=== PATIENT | female | born 1990 | race Caucasian/White ===

== ENCOUNTER 2019-07-17 09:21 | Inpatient (IN) | payer MEDICAID, OTHER ==
--- NOTE | 2019-07-17 11:18 | Ultrasound Report ---
ULTRASOUND BIOPHYSICAL PROFILE INDICATION / CLINICAL INFORMATION: DARREN. COMPARISON: None available. FINDINGS: BREATHING MOVEMENT = 2 GROSS BODY MOVEMENT = 2 TONE = 2 QUALITATIVE AMNIOTIC FLUID VOLUME = 0 TOTAL BIOPHYSICAL SCORE = 6/8 AMNIOTIC FLUID INDEX (cm) = 1.1 PRESENTATION: Cephalic. HEART RATE (beats per minute): 148 IMPRESSION: 1. biophysical profile = 6/8 2. Significantly reduced amniotic fluid volume with amniotic fluid index measuring 1.1 cm. Signer Name: Abelardo Carney MD Signed: 07/17/2019 11:13 AM Workstation Name: [id number]
[2019-07-17] MEDS ORDERED: ePHEDrine SULFATE 50 MG/1 ML INJ IV PRN (11:34)
[2019-07-17] MEDS ORDERED: fentaNYL 100 MCG/2 ML INJ IV PRN (11:34)
[2019-07-17] MEDS ORDERED: TERBUTALINE 1 MG/1 ML INJ SUB-Q PRN (11:34)
[2019-07-17] MEDS ORDERED: LIDOCAINE (2%) 20 MG/1 ML VIAL 20 ML MDV INFILTRATI ONE (12:00)
[2019-07-17] MEDS ORDERED: OXYTOCIN 20 UNIT/1000ML DRIP 20 UNITS/1,000 ML BAG IV SCH (12:00)
[2019-07-17] MEDS ORDERED: AMPICILLIN/NS 2 GM/100 ML 2 GM/100 ML BAG IV ONE (12:45)
--- NOTE | 2019-07-17 12:50 | History and Physical Report ---
History of Present Illness Date of examination: 07/17/19 Date of admission: 07/17/19 11:46 Chief complaint: Oligohydramnios History of present illness: 29 year old female presents to rule out labor. Patient was found not to be in active labor but US obtained today showed DARREN of 1.1 cm and BPP of 6/8. Patient states she does not think her water has been leaking. When questioned again, she states for the past few days she has felt something intermittently coming from vagina but does not think it was fluid leaking. Denies vaginal bleeding. Reports intermittent contractions starting this morning. Denies recent intercourse. Denies fever, chills, or foul smelling discharge. Patient reports active movement. Patient states she received care at [facility]. No records are available; will request records. US was ordered for EGA, EDC, location of placenta, EFW, and presentation. labs were drawn upon admission. Patient states her EDC is 07/25/19. Patient states this is her first , and she states she has had a normal with no complications. Only takes vitamins, no other meds per pt. report. NKDA. NKLA. Denies substance use or abuse. Denies DV. Past History Past Medical History: other (obesity) Past Surgical History: no surgical history TRANSPORTATION SERVICES REPRESENTATIVE History: denies: chlamydia, gonorrhea, hepatitis B, hepatitis C, herpes, HIV, syphilis, trichomonas Family/Genetic History: diabetes Social history: full code, other (denies abuse). denies: smoking, alcohol abuse, prescription drug abuse, IV drug use - Obstetrical History Expected Date of Delivery: 07/25/19 (Per patient report; no records are available.) Actual Gestation: 38 Week(s) 6 Day(s) : 1 Para: 0 Hx # Term Pregnancies: 0 Number of Pregnancies: 0 Spontaneous Abortions: 0 Induced : 0 Number of Living Children: 0 Medications and Allergies Allergies Allergy/AdvReac Type Severity Reaction Status Date / Time No Known Allergies Allergy Unverified 07/17/19 11:45 Active Meds: Active Medications Ephedrine Sulfate (Ephedrine Sulfate) 10 mg IV Q2M PRN PRN Reason: Hypotension Fentanyl (Sublimaze) 100 mcg IV Q2H PRN PRN Reason: Labor Pain Oxytocin/Sodium Chloride (Pitocin/Ns 20 Unit/1000ml Drip) 20 units in 1,000 mls @ 125 mls/hr IV DIRECT STACIE Lactated Ringer's (Lactated Ringers) 1,000 mls @ 125 mls/hr IV DIRECT STACIE Ampicillin Sodium (Ampicillin/Ns 2 Gm/100 Ml) 2 gm in 100 mls @ 100 mls/hr IV ONCE ONE; Protocol Stop: 07/17/19 13:44 Ampicillin Sodium (Ampicillin/Ns 1 Gm/50 Ml) 1 gm in 50 mls @ 100 mls/hr IV Q4HR STACIE; Protocol Terbutaline Sulfate (Brethine) 0.25 mg SUB-Q ONCE PRN PRN Reason: Hyperstimulation/Hypertonicity Review of Systems All systems: negative (contractions) - Vital Signs Vital signs: Vital Signs Pulse BP 78 123/74 07/17/19 09:36 07/17/19 09:36 Temp Pulse Resp BP Pulse Ox 98 F 78 16 123/74 07/17/19 09:46 07/17/19 09:46 07/17/19 09:46 07/17/19 09:46 Speculum exam performed: no pooling noted. No ferning seen on slide. - Physical Exam Cardiovascular: Regular rate, Normal S1, Normal S2 Lungs: Positive: Clear to auscultation Abdomen: Positive: normal appearance, soft. Negative: distention, tenderness, guarding, rigidity Genitourinary (Female): Positive: normal external genitalia, normal perenium. Negative: perineal/vulvar lesions (no lesions noted on careful exam with bright light upon admission) Vagina: Positive: normal moisture Cervix: Positive: other (SVE 1.5/80/-2/cephalic/posterior) Uterus: Positive: enlarged Anus/Rectum: Positive: normal perianal skin Extremities: Positive: normal. Negative: tenderness, edema - Obstetrical FHR comments: FHR baseline 140 with minimal variability and accelerations. No decelerations noted. O2 applied per face mask, lateral positioning, and IV fluid bolus initiated. Uterine Contraction Monitor Mode: External Cervical Dilatation: 1.5 Cervical Effacement Percentage: 80 station: -2 Uterine Contraction Pattern: Irregular Uterine Contraction Intensity: Mild Results Result Diagrams: 07/17/19 13:23 07/17/19 13:23 All other labs normal. Assessment and Plan A: at 38 weeks, 6 days gestation (EDC of 07/25/19 per patient report, no records are available). Oligohydramnios. GBS unknown. No records available. P: US, lab panel ordered upon admission. Continuous EFM. IV fluid bolus, oxygen per face mask, lateral positioning. GBS prophylaxis. Vital sign monitoring and labs. Consulted with Dr. Haley re: this patient and informed her of all of the above, including no records, DARREN of 1.1 and BPP 6/8 (2 off for amniotic fluid), and heart rate tracing with minimal variability and accels. Dr. Haley states to keep patient on EFM and wait to start induction of labor until we receive patient's records tomorrow morning.
[2019-07-17] MEDS: LACTATED RINGERS 1,000 ML IV SCH ×2 (13:47→18:17)
[2019-07-17 14:07] LABS: Hematocrit 38.8 % (30.3-42.9); Hemoglobin 12.7 gm/dl (10.1-14.3); Mean Corpuscular HGB Conc 33 % (30-34); Mean Corpuscular Volume 79 fl (79-97); Platelet Count 217 K/mm3 (140-440); Red Blood Count 4.89 M/mm3 (3.65-5.03); Red Cell Distribution Width 15.4 % (13.2-15.2)
[2019-07-17 14:50] LABS: Albumin 3.7 g/dL (3.9-5); BUN/Creatinine Ratio 10; Blood Urea Nitrogen 5 mg/dL (7-17); Calcium 9.1 mg/dL (8.4-10.2); Hemolysis Index 36
[2019-07-17 14:53] LABS: Alanine Aminotransferase < 5 units/L (7-56)
[2019-07-17] MEDS ORDERED: D5W/LACTATED RINGERS 1,000 ML IV SCH (15:35)
--- NOTE | 2019-07-17 15:35 | Event Note ---
Date: 07/17/19 FHR tracing improved with oxygen, IV fluid bolus and positon change. Period of moderate variability and accelerations noted. Now minimal variability noted with normal FHR baseline rate. Called Dr. Haley at 15:25 and informed her of heart rate tracing and patient's BPs. Informed MD of CBC and CMP results. UA and UDS still pending. Dr. Haley orders to give patient IV fluid bolus of D5 LR for 1 liter, followed by 1 liter of Lactated Ringers solution at bolus rate. Continue oxygen per face mask and postition change. Informed patient's nurse re: new orders received from Dr. Haley.
[2019-07-17] MEDS ORDERED: D5W/LACTATED RINGERS 1,000 ML IV ONE (15:41)
[2019-07-17 15:45] LABS: Hepatitis C Virus Antibody Non-Reactive (NonReactive)
[2019-07-17] MEDS: AMPICILLIN/NS 1 GM/50 ML 1 GM/50 ML BAG IV SCH ×2 (18:17→22:26)
[2019-07-17 18:45] LABS: Bilirubin,Urine NEG (Negative); Blood,Urine SM (Negative); Color,Urine Straw (Yellow); Protein,Urine <15 mg/dL mg/dL (Negative); Urobilinogen,Urine < 2.0 mg/dL (<2.0); WBC,Urine < 1.0 /HPF (0.0-6.0)
[2019-07-17 18:50] LABS: Amphetamine Screen,Urine PRESUMPTIVE NEGATIVE; Benzodiazepines Screen,Urine PRESUMPTIVE NEGATIVE; Cannabinoid Screen,Urine PRESUMPTIVE NEGATIVE; Cocaine Screen,Urine PRESUMPTIVE NEGATIVE; Methadone Screen,Urine PRESUMPTIVE NEGATIVE; Opiate Screen,Urine PRESUMPTIVE NEGATIVE
--- NOTE | 2019-07-17 19:13 | Progress Note ---
Subjective - Subjective Date of service: 07/17/19 Interval history: PM note: I reviewed care to date. Patient admitted with contractions. Noted to have severe oligohydramnios with a BPP of 6/8 and an DARREN of 1. FHT 140's baseline, periods of minimal to moderate variability.Positive accelerations. She is not in labor. Labs/Imaging to date reviewed. Size/Date discrepancy: US measures 34+5/7 weeks No [facility] records-Patient of [place] under my care until 07/18/19. At this time, I have no indication for intervention or delivery. Maternal and status is reassuring overall. Plan of care is for fluids, conservative management, steroids, antibiotics,CFM and intervention for maternal or indication. Devon MENJIVAR Objective - Vital Signs Vital Signs: Vital Signs - 12hr 07/17/19 07/17/19 07/17/19 09:36 09:46 13:03 Temperature 98 F Pulse Rate 78 78 81 Respiratory 16 Rate Blood Pressure 123/74 146/79 Blood Pressure 123/74 [Left] 07/17/19 07/17/19 07/17/19 13:34 14:02 14:17 Temperature Pulse Rate 81 83 77 Respiratory Rate Blood Pressure 165/79 116/69 123/78 Blood Pressure [Left] 07/17/19 07/17/19 07/17/19 14:33 14:49 15:02 Temperature Pulse Rate 73 82 80 Respiratory Rate Blood Pressure 139/91 129/75 134/81 Blood Pressure [Left] 07/17/19 07/17/19 07/17/19 15:17 15:32 15:48 Temperature Pulse Rate 104 H 97 H 85 Respiratory Rate Blood Pressure 121/71 132/72 132/68 Blood Pressure [Left] 07/17/19 07/17/19 07/17/19 16:02 16:33 16:47 Temperature Pulse Rate 76 96 H 89 Respiratory Rate Blood Pressure 126/66 127/74 129/73 Blood Pressure [Left] 07/17/19 07/17/19 17:02 17:17 Temperature Pulse Rate 108 H 96 H Respiratory Rate Blood Pressure 132/84 132/79 Blood Pressure [Left] - Labs Labs: Abnormal Labs 07/17/19 07/17/19 13:23 13:23 MCH 26 L RDW 15.4 H Carbon Dioxide 19 L BUN 5 L Creatinine 0.5 L ALT < 5 L Lactate Dehydrogenase 269 H Albumin 3.7 L Laboratory Results - last 24 hr 07/17/19 07/17/19 07/17/19 13:23 13:23 13:23 WBC 8.3 RBC 4.89 Hgb 12.7 Hct 38.8 MCV 79 MCH 26 L MCHC 33 RDW 15.4 H Plt Count 217 Sodium Potassium Chloride Carbon Dioxide Anion Gap BUN Creatinine Estimated GFR BUN/Creatinine Ratio Glucose Hemoglobin A1c Uric Acid Calcium Total Bilirubin AST ALT Alkaline Phosphatase Lactate Dehydrogenase Total Protein Albumin Albumin/Globulin Ratio Urine Color Urine Turbidity Urine pH Ur Specific [place] Urine Protein Urine Glucose (UA) Urine Ketones Urine Blood Urine Nitrite Urine Bilirubin Urine Urobilinogen Ur Leukocyte Esterase Urine WBC (Auto) Urine RBC (Auto) U Epithel Cells (Auto) Urine Opiates Screen Urine Methadone Screen Ur Barbiturates Screen Ur Phencyclidine Scrn Ur Amphetamines Screen U Benzodiazepines Scrn Urine Cocaine Screen U Marijuana (THC) Screen Drugs of Abuse Note Syphilis IgG Antibody Non-reactive Hep Bs Antigen Hepatitis C Antibody Non-reactive Rubella IgG Antibody Immune Blood Type O POSITIVE Antibody Screen Negative 07/17/19 07/17/19 07/17/19 13:23 13:23 13:23 WBC RBC Hgb Hct MCV MCH MCHC RDW Plt Count Sodium 137 Potassium 4.1 Chloride 102.0 Carbon Dioxide 19 L Anion Gap 20 BUN 5 L Creatinine 0.5 L Estimated GFR > 60 BUN/Creatinine Ratio 10 Glucose 75 Hemoglobin A1c 5.5 Uric Acid 5.0 Calcium 9.1 Total Bilirubin 0.20 AST 17 ALT < 5 L Alkaline Phosphatase 124 Lactate Dehydrogenase 269 H Total Protein 7.2 Albumin 3.7 L Albumin/Globulin Ratio 1.1 Urine Color Urine Turbidity Urine pH Ur Specific [place] Urine Protein Urine Glucose (UA) Urine Ketones Urine Blood Urine Nitrite Urine Bilirubin Urine Urobilinogen Ur Leukocyte Esterase Urine WBC (Auto) Urine RBC (Auto) U Epithel Cells (Auto) Urine Opiates Screen Urine Methadone Screen Ur Barbiturates Screen Ur Phencyclidine Scrn Ur Amphetamines Screen U Benzodiazepines Scrn Urine Cocaine Screen U Marijuana (THC) Screen Drugs of Abuse Note Syphilis IgG Antibody Hep Bs Antigen Non-reactive Hepatitis C Antibody Rubella IgG Antibody Blood Type Antibody Screen 07/17/19 07/17/19 18:21 18:21 WBC RBC Hgb Hct MCV MCH MCHC RDW Plt Count Sodium Potassium Chloride Carbon Dioxide Anion Gap BUN Creatinine Estimated GFR BUN/Creatinine Ratio Glucose Hemoglobin A1c Uric Acid Calcium Total Bilirubin AST ALT Alkaline Phosphatase Lactate Dehydrogenase Total Protein Albumin Albumin/Globulin Ratio Urine Color Straw Urine Turbidity Clear Urine pH 7.0 Ur Specific [place] 1.006 Urine Protein <15 mg/dl Urine Glucose (UA) Neg Urine Ketones Tr Urine Blood Sm Urine Nitrite Neg Urine Bilirubin Neg Urine Urobilinogen < 2.0 Ur Leukocyte Esterase Neg Urine WBC (Auto) < 1.0 Urine RBC (Auto) 1.0 U Epithel Cells (Auto) 2.0 Urine Opiates Screen Presumptive negative Urine Methadone Screen Presumptive negative Ur Barbiturates Screen Presumptive negative Ur Phencyclidine Scrn Presumptive negative Ur Amphetamines Screen Presumptive negative U Benzodiazepines Scrn Presumptive negative Urine Cocaine Screen Presumptive negative U Marijuana (THC) Screen Presumptive negative Drugs of Abuse Note Disclamer Syphilis IgG Antibody Hep Bs Antigen Hepatitis C Antibody Rubella IgG Antibody Blood Type Antibody Screen
--- NOTE | 2019-07-17 19:13 | Event Note ---
Date: 07/17/19 [employer] just did US. EGA per US report is 34 weeks, 5 days gestation and EDC is 08/23/19. Will order [facility] for FLM. Dr. Haley aware. Will await records (to obtain when [facility] opens in AM). Continuous EFM.
--- NOTE | 2019-07-17 19:28 | Ultrasound Report ---
ULTRASOUND OBSTETRIC Indication: Calculate gestational age, EDC, location placenta, Findings: There is a single intrauterine . BPD = 7.9 cm = 31 weeks, 5 day(s). Head circumference = 30.3 cm = 33 weeks, 5 day(s). Abdominal circumference = 32.5 cm = 36 weeks, 3 day(s). Femur length = 7.2 cm = 37 weeks, 0 day(s). Overall estimated sonographic age = 34 weeks, 5 day(s). heart rate is 163 beats per minute. Estimated weight is 2750 grams position is cephalic. Cervix appears closed. movement is present. Placenta is fundal, right lateral and grade 2 . Amniotic fluid volume is decreased, amniotic fluid index measures 1.4 cm. Maternal adnexa were not visualized. Impression: 1. Single living intrauterine with estimated sonographic age of 34 weeks, 5 day(s). 2. Amniotic fluid index is significantly decreased, measuring 1.4 cm. Signer Name: Abelardo Carney MD Signed: 07/17/2019 7:23 PM Workstation Name: [id number]
[2019-07-17] MEDS ORDERED: BETAMET ACET/BETAMET NA PH 6 MG/ML INJ 5 ML MDV IM SCH (20:00)
[2019-07-18] MEDS ORDERED: ACETAMINOPHEN 325 MG TAB PO ONE (02:00)
--- NOTE | 2019-07-18 02:20 | Event Note ---
Date: 07/18/19 SVE /-1.
[2019-07-18] MEDS: AMPICILLIN/NS 1 GM/50 ML 1 GM/50 ML BAG IV SCH ×3 (02:45→13:18)
--- NOTE | 2019-07-18 05:58 | Event Note ---
Date: 07/18/19 Patient is now having regular contractions. Reports pain with contractions. SVE 3.5/100/-1. Small amount of clear fluid seen leaking from vagina. Small amount of bloody show noted. Patient requests epidural. Patient is afebrile and FHR tracing is reassuring.
--- NOTE | 2019-07-18 08:02 | Progress Note ---
Assessment and Plan - Patient Problems (1) 39 weeks gestation of Onset Date: 07/18/19 Current Visit: Yes Status: Acute Plan to address problem: A: IUP @ 39 0/7 weeks Suspected IUGR Oligohydramnios +GBS P: Will begin pitocin augmentation of labor IV Ampicillin (2) [id number] fetus, third trimester Onset Date: 07/18/19 Current Visit: Yes Status: Acute (3) Oligohydramnios in third trimester Onset Date: 07/18/19 Current Visit: Yes Status: Acute Qualifiers: Fetus number: single or unspecified fetus Qualified Code(s): O41.03X0 - Oligohydramnios, third trimester, not applicable or unspecified Subjective - Subjective Date of service: 07/18/19 Principal diagnosis: IUP @ 39 0/7 weeks Interval history: Pt is a 29yo HF EDC 07/25/19; EGA 39 0/7 weeks presented in labor yesterday. records now available confirming EDC 07/25/19. She received late care at [facility] since 24 weeks and course has been unremarkable except +GBS. She is currently 3.5/100/V/- 1 per the Tractor Operator Helper. Patient was found not to be in active labor, and US obtained today showed DARREN of 1.1 cm and BPP of 6/8. Patient reports: loss of fluid, movement normal, contractions, no new complaints, no vaginal bleeding Objective - Vital Signs Vital Signs: Vital Signs - 12hr 07/18/19 07/18/19 07/18/19 02:15 02:19 02:24 Temperature Pulse Rate 77 74 Blood Pressure 135/92 O2 Sat by Pulse 99 100 Oximetry 07/18/19 07/18/19 07/18/19 02:29 02:34 02:44 Temperature Pulse Rate 87 94 H 118 H Blood Pressure O2 Sat by Pulse 100 100 99 Oximetry 07/18/19 07/18/19 07/18/19 02:49 02:54 02:59 Temperature Pulse Rate 101 H 100 H 105 H Blood Pressure O2 Sat by Pulse 100 100 100 Oximetry 07/18/19 07/18/19 07/18/19 03:04 03:09 03:14 Temperature Pulse Rate 113 H 110 H 97 H Blood Pressure O2 Sat by Pulse 100 100 100 Oximetry 07/18/19 07/18/1919 03:19 03:24 03:29 Temperature Pulse Rate 95 H 109 H 95 H Blood Pressure O2 Sat by Pulse 100 100 99 Oximetry 07/18/19 07/18/19 07/18/19 03:34 03:39 03:44 Temperature Pulse Rate 107 H 96 H 96 H Blood Pressure O2 Sat by Pulse 100 100 100 Oximetry 07/18/19 07/18/19 07/18/19 03:49 03:54 03:59 Temperature Pulse Rate 88 103 H 96 H Blood Pressure O2 Sat by Pulse 100 100 100 Oximetry 07/18/19 07/18/19 07/18/19 04:04 04:09 04:14 Temperature Pulse Rate 101 H 92 H 92 H Blood Pressure O2 Sat by Pulse 100 100 100 Oximetry 07/18/19 07/18/19 07/18/19 04:19 04:24 04:29 Temperature Pulse Rate 88 90 94 H Blood Pressure O2 Sat by Pulse 100 100 99 Oximetry 07/18/19 07/18/19 07/18/19 04:34 04:39 04:43 Temperature 98.2 F Pulse Rate 86 95 H Blood Pressure O2 Sat by Pulse 100 100 Oximetry 07/18/19 07/18/19 07/18/19 04:44 04:49 04:54 Temperature Pulse Rate 84 84 89 Blood Pressure O2 Sat by Pulse 100 100 100 Oximetry 07/18/19 07/18/19 07/18/19 04:59 05:04 05:09 Temperature Pulse Rate 100 H 83 94 H Blood Pressure O2 Sat by Pulse 100 100 100 Oximetry 07/18/19 07/18/19 07/18/19 05:14 05:19 05:24 Temperature Pulse Rate 91 H 101 H 100 H Blood Pressure O2 Sat by Pulse 100 98 99 Oximetry 07/18/19 07/18/19 07/18/19 05:29 05:34 05:39 Temperature Pulse Rate 98 H 103 H 84 Blood Pressure O2 Sat by Pulse 97 96 97 Oximetry 07/18/19 07/18/19 07/18/19 05:44 05:49 05:54 Temperature Pulse Rate 85 89 81 Blood Pressure O2 Sat by Pulse 100 100 100 Oximetry 07/18/19 07/18/19 07/18/19 05:59 06:04 06:09 Temperature Pulse Rate 89 104 H 81 Blood Pressure O2 Sat by Pulse 100 100 100 Oximetry 07/18/19 07/18/19 07/18/19 06:14 06:17 06:19 Temperature Pulse Rate 82 103 H 97 H Blood Pressure O2 Sat by Pulse 100 92 100 Oximetry 07/18/19 07/18/19 07/18/19 06:24 06:29 06:34 Temperature Pulse Rate 79 84 84 Blood Pressure O2 Sat by Pulse 99 100 100 Oximetry 07/18/19 07/18/19 07/18/19 06:39 06:44 06:49 Temperature Pulse Rate 82 78 93 H Blood Pressure O2 Sat by Pulse 100 100 100 Oximetry 07/18/19 07/18/19 07/18/19 06:54 06:59 07:04 Temperature Pulse Rate 86 97 H 79 Blood Pressure O2 Sat by Pulse 99 100 99 Oximetry 07/18/19 07/18/19 07/18/19 07:09 07:14 07:19 Temperature Pulse Rate 100 H 80 80 Blood Pressure O2 Sat by Pulse 96 99 100 Oximetry 07/18/19 07/18/19 07/18/19 07:24 07:29 07:34 Temperature Pulse Rate 109 H 94 H 86 Blood Pressure O2 Sat by Pulse 98 100 99 Oximetry 07/18/19 07/18/19 07/18/19 07:39 07:44 07:49 Temperature Pulse Rate 77 76 76 Blood Pressure O2 Sat by Pulse 100 100 100 Oximetry 07/18/19 07/18/19 07:54 07:59 Temperature Pulse Rate 106 H 75 Blood Pressure 136/81 O2 Sat by Pulse 99 100 Oximetry - Exam Abdomen: Present: normal appearance, soft Uterus: Present: normal FHR: category 1 Uterine Contraction Monitor Mode: External Cervical Dilatation: 3.5 (per CNM) Cervical Effacement Percentage: 100 (per CNM) station: -1 Uterine Contraction Pattern: Irregular Uterine Tone Measurement Phase: Contraction Uterine Contraction Intensity: Mild - Labs Labs: Abnormal Labs 07/17/19 07/17/19 13:23 13:23 MCH 26 L RDW 15.4 H Carbon Dioxide 19 L BUN 5 L Creatinine 0.5 L ALT < 5 L Lactate Dehydrogenase 269 H Albumin 3.7 L Laboratory Results - last 24 hr 07/17/19 07/17/19 07/17/19 13:23 13:23 13:23 WBC 8.3 RBC 4.89 Hgb 12.7 Hct 38.8 MCV 79 MCH 26 L MCHC 33 RDW 15.4 H Plt Count 217 Sodium Potassium Chloride Carbon Dioxide Anion Gap BUN Creatinine Estimated GFR BUN/Creatinine Ratio Glucose Hemoglobin A1c Uric Acid Calcium Total Bilirubin AST ALT Alkaline Phosphatase Lactate Dehydrogenase Total Protein Albumin Albumin/Globulin Ratio Urine Color Urine Turbidity Urine pH Ur Specific [place] Urine Protein Urine Glucose (UA) Urine Ketones Urine Blood Urine Nitrite Urine Bilirubin Urine Urobilinogen Ur Leukocyte Esterase Urine WBC (Auto) Urine RBC (Auto) U Epithel Cells (Auto) Urine Opiates Screen Urine Methadone Screen Ur Barbiturates Screen Ur Phencyclidine Scrn Ur Amphetamines Screen U Benzodiazepines Scrn Urine Cocaine Screen U Marijuana (THC) Screen Drugs of Abuse Note Syphilis IgG Antibody Non-reactive Hep Bs Antigen Hepatitis C Antibody Non-reactive Rubella IgG Antibody Immune Blood Type O POSITIVE Antibody Screen Negative 07/17/19 07/17/19 07/17/19 13:23 13:23 13:23 WBC RBC Hgb Hct MCV MCH MCHC RDW Plt Count Sodium 137 Potassium 4.1 Chloride 102.0 Carbon Dioxide 19 L Anion Gap 20 BUN 5 L Creatinine 0.5 L Estimated GFR > 60 BUN/Creatinine Ratio 10 Glucose 75 Hemoglobin A1c 5.5 Uric Acid 5.0 Calcium 9.1 Total Bilirubin 0.20 AST 17 ALT < 5 L Alkaline Phosphatase 124 Lactate Dehydrogenase 269 H Total Protein 7.2 Albumin 3.7 L Albumin/Globulin Ratio 1.1 Urine Color Urine Turbidity Urine pH Ur Specific [place] Urine Protein Urine Glucose (UA) Urine Ketones Urine Blood Urine Nitrite Urine Bilirubin Urine Urobilinogen Ur Leukocyte Esterase Urine WBC (Auto) Urine RBC (Auto) U Epithel Cells (Auto) Urine Opiates Screen Urine Methadone Screen Ur Barbiturates Screen Ur Phencyclidine Scrn Ur Amphetamines Screen U Benzodiazepines Scrn Urine Cocaine Screen U Marijuana (THC) Screen Drugs of Abuse Note Syphilis IgG Antibody Hep Bs Antigen Non-reactive Hepatitis C Antibody Rubella IgG Antibody Blood Type Antibody Screen 07/17/19 07/17/19 18:21 18:21 WBC RBC Hgb Hct MCV MCH MCHC RDW Plt Count Sodium Potassium Chloride Carbon Dioxide Anion Gap BUN Creatinine Estimated GFR BUN/Creatinine Ratio Glucose Hemoglobin A1c Uric Acid Calcium Total Bilirubin AST ALT Alkaline Phosphatase Lactate Dehydrogenase Total Protein Albumin Albumin/Globulin Ratio Urine Color Straw Urine Turbidity Clear Urine pH 7.0 Ur Specific [place] 1.006 Urine Protein <15 mg/dl Urine Glucose (UA) Neg Urine Ketones Tr Urine Blood Sm Urine Nitrite Neg Urine Bilirubin Neg Urine Urobilinogen < 2.0 Ur Leukocyte Esterase Neg Urine WBC (Auto) < 1.0 Urine RBC (Auto) 1.0 U Epithel Cells (Auto) 2.0 Urine Opiates Screen Presumptive negative Urine Methadone Screen Presumptive negative Ur Barbiturates Screen Presumptive negative Ur Phencyclidine Scrn Presumptive negative Ur Amphetamines Screen Presumptive negative U Benzodiazepines Scrn Presumptive negative Urine Cocaine Screen Presumptive negative U Marijuana (THC) Screen Presumptive negative Drugs of Abuse Note Disclamer Syphilis IgG Antibody Hep Bs Antigen Hepatitis C Antibody Rubella IgG Antibody Blood Type Antibody Screen - Results US- obstetric: report reviewed
[2019-07-18] MEDS ORDERED: BUTORPHANOL 2 MG/1 ML INJ IV PRN (08:13)
[2019-07-18] MEDS ORDERED: OXYTOCIN DRIP 30 UNITS/500 ML BAG IV SCH (09:00)
[2019-07-18] MEDS: LACTATED RINGERS 1,000 ML IV SCH ×3 (10:00→15:53)
[2019-07-18] MEDS ORDERED: fentaNYL-BUPIV 2 MCG/ML-0.125% 200 MCG/100 ML BAG EPIDURAL ONE (11:57)
[2019-07-18] MEDS ORDERED: NALOXONE 2 MG/2 ML INJ IV PRN (12:15)
[2019-07-18] MEDS ORDERED: ePHEDrine SULFATE 50 MG/1 ML INJ IV PRN (12:15)
--- NOTE | 2019-07-18 12:15 | Anesthesia Consultation ---
Anesthesia Consult and Med Hx Date of service: 07/18/19 - Airway Anesthetic Teeth Evaluation: Good ROM Head & Neck: Adequate Mental/Hyoid Distance: Adequate Mallampati Class: Class II Intubation Access Assessment: Probably Good - Pre-Operative Health Status ASA Pre-Surgery Classification: ASA2 Proposed Anesthetic Plan: Epidural, Spinal - Pulmonary Hx Asthma: No COPD: No Hx Pneumonia: No - Cardiovascular System Hx Hypertension: No - Central Nervous System Hx Seizures: No Hx Psychiatric Problems: No - Endocrine Hx Renal Disease: No Hx End Stage Renal Disease: No Hx Hypothyroidism: No Hx Hyperthyroidism: No - Hematic Hx Anemia: No Hx Sickle Cell Disease: No - Other Systems Hx Alcohol Use: Yes
[2019-07-18] MEDS ORDERED: fentaNYL-BUPIV 2 MCG/ML-0.125% 200 MCG/100 ML BAG EPIDURAL SCH (13:00)
[2019-07-18] MEDS ORDERED: LIDOCAINE MPF (2%) 20 MG/1 ML VIAL 5 ML ONE (15:26)
[2019-07-18] MEDS ORDERED: MINERAL OIL 30 ML ORAL LIQD PO PRN (16:04)
--- NOTE | 2019-07-18 17:18 | Procedure Note ---
OB Delivery Note - Delivery Date of Delivery: 07/18/19 Surgeon: JOSE GE Estimated blood loss: 300cc - Vaginal Delivery presentation: vertex Delivery position: OA Intrapartum events: PROM->1hr before delivery Delivery induction: oxytocin Delivery augmentation: rupture of membranes, pitocin Delivery monitor: external FHT, external uterine Route of delivery: Delivery placenta: spontaneous Delivery cord: 3 umbilical vessels Episiotomy: none Delivery laceration: 2nd degree (perineal) Delivery repair: vicryl Anesthesia: epidural Delivery comments: delivered OA and placed on Mom's chest for [id number] bonding and delayed cord clamping and cut by me. - A at 1 minute: 8 at 5 minutes: 9 Infant Gender: Female ([id number])
[2019-07-18] MEDS ORDERED: BENZOCAINE/MENTHOL 20/0.5% TOP SPRAY 56 GM TP PRN (17:23)
[2019-07-18] MEDS ORDERED: PROMETHAZINE 25 MG TAB PO PRN (17:23)
[2019-07-18] MEDS ORDERED: HYDROcodone/ACETAMINOPHEN 5-325 MG TAB PO PRN (17:23)
[2019-07-18] MEDS ORDERED: diphenhydrAMINE 25 MG CAP PO PRN (17:23)
[2019-07-18] MEDS ORDERED: WITCH HAZEL/ GLYCERIN PAD TP PRN (17:23)
[2019-07-18] MEDS ORDERED: LANOLIN/ZINC/DIMETHICONE (LANSINOH) 7 GM TP PRN (17:23)
[2019-07-18] MEDS ORDERED: MAGNESIUM HYDROXIDE (MOM) ORAL LIQD UDC PO PRN (17:23)
[2019-07-18] MEDS ORDERED: PROMETHAZINE 25 MG RECT SUPP PR PRN (17:23)
[2019-07-18] MEDS ORDERED: ONDANSETRON 4 MG/2 ML INJ IV PRN (17:23)
[2019-07-18] MEDS ORDERED: OXYTOCIN 20 UNIT/1000ML DRIP 20 UNITS/1,000 ML BAG IV SCH (18:00)
[2019-07-18] MEDS: IBUPROFEN 600 MG TAB PO SCH (22:36)
[2019-07-18] MEDS: FERROUS SULFATE 325 MG TAB PO SCH (22:37)
[2019-07-18] MEDS: DOCUSATE SODIUM 100 MG CAP PO SCH (22:37)
[2019-07-19 04:15] LABS: Hematocrit 30.8 % (30.3-42.9); Hemoglobin 10.1 gm/dl (10.1-14.3)
[2019-07-19] MEDS: IBUPROFEN 600 MG TAB PO SCH ×5 (04:51→23:00)
[2019-07-19] MEDS ORDERED: TETANUS,DIPH,PERTUSS(ACELL) VACCINE 0.5 ML SYRINGE IM ONE (06:00)
[2019-07-19] MEDS: PRENATAL VIT27-FE FUMARATE-FOLIC ACID VIT TAB PO SCH (09:52)
[2019-07-19] MEDS: FERROUS SULFATE 325 MG TAB PO SCH ×2 (09:52→22:59)
[2019-07-19] MEDS: DOCUSATE SODIUM 100 MG CAP PO SCH ×2 (09:52→22:59)
--- NOTE | 2019-07-19 14:01 | Progress Note ---
Assessment and Plan - Patient Problems (1) 39 weeks gestation of Onset Date: 07/18/19 Current Visit: Yes Status: Resolved (2) Chcvv-kei-sisft fetus, third trimester Onset Date: 07/18/19 Current Visit: Yes Status: Resolved (3) Oligohydramnios in third trimester Onset Date: 07/18/19 Current Visit: Yes Status: Resolved Qualifiers: Fetus number: single or unspecified fetus Qualified Code(s): O41.03X0 - Oligohydramnios, third trimester, not applicable or unspecified (4) (normal spontaneous vaginal delivery) Onset Date: 07/19/19 Current Visit: Yes Status: Resolved Plan to address problem: A: S/P - PPD #1 Doing well Asymptomatic anemia - stable P: Anticipate discharge home tomorrow. (5) Acute blood loss anemia Current Visit: Yes Status: Resolved Subjective - Subjective Date of service: 07/19/19 Principal diagnosis: s/p - PPD #1 Interval history: Pt is feeling well without complaints. Bleeding improved. Patient reports: appetite normal, voiding normally, pain well controlled, flatus, ambulating normally, no dizzy ambulation, no nauseated : doing well, nursing well Objective - Vital Signs Latest vital signs: Vital Signs Temp Pulse Resp BP BP Pulse Ox 07/19/19 13:32 98.6 F 114 H 125/82 07/19/19 12:28 99.6 F 114 H 20 138/88 97 07/19/19 07:50 98.4 F 79 16 119/78 95 07/19/19 04:23 98.2 F 85 20 115/69 98 07/18/19 23:40 108 H 07/18/19 23:35 98.2 F 120 H 20 120/74 96 07/18/19 18:50 99.1 F 86 18 145/79 97 07/18/19 18:12 82 149/70 07/18/19 17:56 86 118/73 07/18/19 17:42 93 H 151/69 07/18/19 17:26 99 H 150/94 07/18/19 17:16 66 62 L 07/18/19 17:12 108 H 99 07/18/19 17:11 91 H 151/80 07/18/19 17:07 98 H 99 07/18/19 17:02 89 99 11/18/19 16:57 109 H 100 18/19 16:52 107 H 100 18/19 16:47 108 H 100 18/19 16:42 110 H 178/82 100 18/19 16:37 107 H 94 18/19 16:32 107 H 100 18/19 16:27 95 H 140/82 100 18/19 16:22 95 H 100 18/19 16:17 104 H 100 18/19 16:12 88 130/68 100 18/19 16:07 87 99 18/19 16:05 126 H 94 18/19 16:02 95 H 100 18/19 15:57 112 H 99 18/19 15:56 108 H 150/72 18/19 15:52 99 18/19 15:47 114 H 100 18/19 15:42 95 H 140/77 100 18/19 15:37 86 100 18/19 15:32 82 100 18/19 15:28 86 160/88 18/19 15:26 99 H 100 18/19 15:21 108 H 99 18/19 15:16 101 H 99 18/19 15:13 96 H 125/58 18/19 15:11 101 H 98 18/19 15:06 109 H 99 18/19 15:01 106 H 99 18/19 14:57 82 136/64 18/19 14:56 86 99 18/19 14:51 87 99 18/19 14:46 99 H 100 18/19 14:42 85 142/68 18/19 14:41 105 H 100 18/19 14:36 82 100 18/19 14:31 102 H 100 18/19 14:27 81 141/63 18/19 14:26 87 99 18/19 14:21 110 H 99 18/19 14:16 89 100 18/19 14:12 91 H 135/67 18/19 14:11 112 H 100 18/19 14:06 111 H 100 18/19 14:01 101 H 100 Intake and Output 07/18/19 07/19/19 07/19/19 22:59 06:59 14:59 Intake Total 22.067 120 240 Output Total 800 900 Balance 83.298 -053 -865 Intake: IV 22.067 PITOCin/NS 30 UNIT/500ML 22.067 30 units In 500 ml @ 4 mls/hr IV TITR [facility] Rx#: [id number] Oral 120 240 Output: Urine 800 900 Void 800 900 Other: Total, Intake Amount 120 240 Total, Output Amount 800 900 # Voids Void 1 3 Estimated Blood Loss 300 - Exam Breasts: Present: deferred Abdomen: Present: normal appearance, soft Uterus: Present: normal, firm, fundal height below umbilicus Extremities: Present: normal - Labs Labs: Laboratory Tests 07/17/19 07/17/19 07/17/19 13:23 13:23 13:23 WBC 8.3 RBC 4.89 Hgb 12.7 Hct 38.8 MCV 79 MCH 26 L MCHC 33 RDW 15.4 H Plt Count 217 Sodium Potassium Chloride Carbon Dioxide Anion Gap BUN Creatinine Estimated GFR BUN/Creatinine Ratio Glucose Hemoglobin A1c Uric Acid Calcium Total Bilirubin AST ALT Alkaline Phosphatase Lactate Dehydrogenase Total Protein Albumin Albumin/Globulin Ratio Urine Color Urine Turbidity Urine pH Ur Specific [place] Urine Protein Urine Glucose (UA) Urine Ketones Urine Blood Urine Nitrite Urine Bilirubin Urine Urobilinogen Ur Leukocyte Esterase Urine WBC (Auto) Urine RBC (Auto) U Epithel Cells (Auto) Urine Opiates Screen Urine Methadone Screen Ur Barbiturates Screen Ur Phencyclidine Scrn Ur Amphetamines Screen U Benzodiazepines Scrn Urine Cocaine Screen U Marijuana (THC) Screen Drugs of Abuse Note Syphilis IgG Antibody Non-reactive Hep Bs Antigen Hepatitis C Antibody Non-reactive Rubella IgG Antibody Immune Blood Type O POSITIVE Antibody Screen Negative 07/17/19 07/17/19 07/17/19 13:23 13:23 13:23 WBC RBC Hgb Hct MCV MCH MCHC RDW Plt Count Sodium 137 Potassium 4.1 Chloride 102.0 Carbon Dioxide 19 L Anion Gap 20 BUN 5 L Creatinine 0.5 L Estimated GFR > 60 BUN/Creatinine Ratio 10 Glucose 75 Hemoglobin A1c 5.5 Uric Acid 5.0 Calcium 9.1 Total Bilirubin 0.20 AST 17 ALT < 5 L Alkaline Phosphatase 124 Lactate Dehydrogenase 269 H Total Protein 7.2 Albumin 3.7 L Albumin/Globulin Ratio 1.1 Urine Color Urine Turbidity Urine pH Ur Specific [place] Urine Protein Urine Glucose (UA) Urine Ketones Urine Blood Urine Nitrite Urine Bilirubin Urine Urobilinogen Ur Leukocyte Esterase Urine WBC (Auto) Urine RBC (Auto) U Epithel Cells (Auto) Urine Opiates Screen Urine Methadone Screen Ur Barbiturates Screen Ur Phencyclidine Scrn Ur Amphetamines Screen U Benzodiazepines Scrn Urine Cocaine Screen U Marijuana (THC) Screen Drugs of Abuse Note Syphilis IgG Antibody Hep Bs Antigen Non-reactive Hepatitis C Antibody Rubella IgG Antibody Blood Type Antibody Screen 07/17/19 07/17/19 07/19/19 18:21 18:21 03:47 WBC RBC Hgb 10.1 Hct 30.8 D MCV MCH MCHC RDW Plt Count Sodium Potassium Chloride Carbon Dioxide Anion Gap BUN Creatinine Estimated GFR BUN/Creatinine Ratio Glucose Hemoglobin A1c Uric Acid Calcium Total Bilirubin AST ALT Alkaline Phosphatase Lactate Dehydrogenase Total Protein Albumin Albumin/Globulin Ratio Urine Color Straw Urine Turbidity Clear Urine pH 7.0 Ur Specific [place] 1.006 Urine Protein <15 mg/dl Urine Glucose (UA) Neg Urine Ketones Tr Urine Blood Sm Urine Nitrite Neg Urine Bilirubin Neg Urine Urobilinogen < 2.0 Ur Leukocyte Esterase Neg Urine WBC (Auto) < 1.0 Urine RBC (Auto) 1.0 U Epithel Cells (Auto) 2.0 Urine Opiates Screen Presumptive negative Urine Methadone Screen Presumptive negative Ur Barbiturates Screen Presumptive negative Ur Phencyclidine Scrn Presumptive negative Ur Amphetamines Screen Presumptive negative U Benzodiazepines Scrn Presumptive negative Urine Cocaine Screen Presumptive negative U Marijuana (THC) Screen Presumptive negative Drugs of Abuse Note Disclamer Syphilis IgG Antibody Hep Bs Antigen Hepatitis C Antibody Rubella IgG Antibody Blood Type Antibody Screen
[2019-07-19] MEDS ORDERED: MEASLES, MUMPS & RUBELLA 12,500 UNIT/0.5 ML VACCINE SUB-Q ONE (17:23)
[2019-07-20] MEDS: ACETAMINOPHEN 325 MG TAB PO PRN ×3 (00:15→15:40)
[2019-07-20 05:40] LABS: HIV-1 Antibody Differentiation SEE SCANNED RESULT; HIV-2 Antibody Differentiation SEE SCANNED RESULT
[2019-07-20] MEDS: PRENATAL VIT27-FE FUMARATE-FOLIC ACID VIT TAB PO SCH (10:04)
[2019-07-20] MEDS: FERROUS SULFATE 325 MG TAB PO SCH ×2 (10:04→21:50)
[2019-07-20] MEDS: DOCUSATE SODIUM 100 MG CAP PO SCH ×2 (10:04→21:50)
--- NOTE | 2019-07-20 10:51 | Progress Note ---
Assessment and Plan - Patient Problems (1) 39 weeks gestation of Onset Date: 07/18/19 Current Visit: Yes Status: Resolved (2) Pedez-wov-pgkyl fetus, third trimester Onset Date: 07/18/19 Current Visit: Yes Status: Resolved (3) Oligohydramnios in third trimester Onset Date: 07/18/19 Current Visit: Yes Status: Resolved Qualifiers: Fetus number: single or unspecified fetus Qualified Code(s): O41.03X0 - Oligohydramnios, third trimester, not applicable or unspecified (4) (normal spontaneous vaginal delivery) Onset Date: 07/19/19 Current Visit: Yes Status: Resolved Plan to address problem: A: S/P - PPD #1 Doing well Asymptomatic anemia - stable Low grade temp P: Will obtain CBC, U/A and begin IV Ancef (5) Acute blood loss anemia Current Visit: Yes Status: Resolved Subjective - Subjective Date of service: 07/20/19 Principal diagnosis: s/p - PPD #2; Low grade temp Interval history: Pt is feeling well without complaints. Patient reports: appetite normal, voiding normally, pain well controlled, flatus, ambulating normally, no dizzy ambulation, no nauseated [place]: doing well, nursing well Objective - Vital Signs Latest vital signs: Vital Signs Temp Pulse Resp BP BP Pulse Ox 07/20/19 09:56 101.6 F H 07/20/19 08:39 101.7 F H 109 H 18 137/83 97 07/20/19 01:36 99.2 F 07/20/19 00:02 100.3 F H 96 H 20 115/73 95 07/19/19 16:31 98.2 F 103 H 18 123/81 96 07/19/19 13:32 98.6 F 114 H 125/82 07/19/19 12:28 99.6 F 114 H 20 138/88 97 Intake and Output 07/19/19 07/20/19 07/20/19 22:59 06:59 14:59 Intake Total 240 Balance 240 Intake: Oral 240 Other: Total, Intake Amount 240 # Voids Void 1 - Exam Cardiovascular: Present: Regular rate Abdomen: Present: normal appearance, soft Uterus: Present: normal, firm, fundal height below umbilicus Extremities: Present: normal
[2019-07-20 11:23] LABS: Basophils # (Auto) 0.1 K/mm3 (0.0-0.1); Basophils % (Auto) 0.4 % (0.0-1.8); Eosinophils # (Auto) 0.6 K/mm3 (0.0-0.4); Eosinophils % (Auto) 3.7 % (0.0-4.3); Hematocrit 33.8 % (30.3-42.9); Lymphocytes # (Auto) 1.2 K/mm3 (1.2-5.4); Lymphocytes % (Auto) 7.7 % (13.4-35.0); Mean Corpuscular HGB Conc 33 % (30-34); Mean Corpuscular Volume 79 fl (79-97); Monocytes # (Auto) 0.9 K/mm3 (0.0-0.8); Monocytes % (Auto) 5.5 % (0.0-7.3); Platelet Count 218 K/mm3 (140-440); Red Blood Count 4.27 M/mm3 (3.65-5.03); Red Cell Distribution Width 15.7 % (13.2-15.2)
[2019-07-20] MEDS: IBUPROFEN 600 MG TAB PO SCH ×3 (12:00→21:50)
[2019-07-20] MEDS ORDERED: SODIUM CHLORIDE 0.9% 250ML 250 ML ONE (16:07)
[2019-07-20 16:14] LABS: Bacteria,Urine 1+ /HPF (Negative); Bilirubin,Urine NEG (Negative); Blood,Urine LG (Negative); Color,Urine Yellow (Yellow); Mucus,Urine FEW /HPF; Protein,Urine <15 mg/dL mg/dL (Negative); Urobilinogen,Urine < 2.0 mg/dL (<2.0)
[2019-07-20] MEDS: ceFAZolin/NS 1 GM/50 ML 1 GM/50 ML BAG IV SCH (22:18)
[2019-07-21] MEDS: ceFAZolin/NS 1 GM/50 ML 1 GM/50 ML BAG IV SCH ×3 (05:45→23:00)
[2019-07-21] MEDS: IBUPROFEN 600 MG TAB PO SCH ×4 (05:50→12:00)
--- NOTE | 2019-07-21 07:25 | Progress Note ---
Assessment and Plan - Patient Problems (1) 39 weeks gestation of Onset Date: 07/18/19 Current Visit: Yes Status: Resolved (2) Tvcqq-kji-rposl fetus, third trimester Onset Date: 07/18/19 Current Visit: Yes Status: Resolved (3) Oligohydramnios in third trimester Onset Date: 07/18/19 Current Visit: Yes Status: Resolved Qualifiers: Fetus number: single or unspecified fetus Qualified Code(s): O41.03X0 - Oligohydramnios, third trimester, not applicable or unspecified (4) (normal spontaneous vaginal delivery) Onset Date: 07/19/19 Current Visit: Yes Status: Resolved Plan to address problem: A: S/P - PPD #3 Doing well Asymptomatic anemia - stable Low grade temp - resolved with IV Ancef. Afebrile > 24hrs P: May go home today on PO Keflex Follow up in office in 5 days. (5) Acute blood loss anemia Current Visit: Yes Status: Resolved Subjective - Subjective Date of service: 07/21/19 Principal diagnosis: s/p - PPD #3; Low grade temp Interval history: Pt is feeling well without complaints. She is feeling much better and wants to go home. Patient reports: appetite normal, voiding normally, pain well controlled, flatus, ambulating normally, no dizzy ambulation, no nauseated [place]: doing well, nursing well Objective - Vital Signs Latest vital signs: Vital Signs Temp Pulse Resp BP Pulse Ox 07/21/19 00:36 98.7 F 90 18 110/68 97 07/20/19 17:04 98.7 F 95 H 18 127/85 96 07/20/19 09:56 101.6 F H 07/20/19 08:39 101.7 F H 109 H 18 137/83 97 Intake and Output 07/20/19 07/21/19 07/21/19 22:59 06:59 14:59 Intake Total 630 600 Balance 630 600 Intake: IV 150 ANCEF/NS 1 GM/50 ML 1 gm 50 In 50 ml @ 100 mls/hr IV Q8HR [facility] Rx#:[id number] ceFAZolin 2 GM In NaCl 0. 100 9% 100 ml @ 200 mls/hr IV ONCE ONE Rx#:[id number] Intake, Free Water 480 600 Other: # Voids Void 2 1 - Exam Lungs: Present: Clear to auscultation Abdomen: Present: normal appearance, soft Uterus: Present: normal Extremities: Present: normal - Labs Labs: Abnormal lab results 07/20/19 07/20/19 Range/Units 10:59 15:58 WBC 16.3 H (4.5-11.0) K/mm3 MCH 26 L (28-32) pg RDW 15.7 H (13.2-15.2) % Lymph % (Auto) 7.7 L (13.4-35.0) % [place] # 0.9 H (0.0-0.8) K/mm3 Eos # 0.6 H (0.0-0.4) K/mm3 Seg Neutrophils % 82.7 H (40.0-70.0) % Seg Neutrophils # 13.5 H (1.8-7.7) K/mm3 Urine pH 8.0 H (5.0-7.0) Urine WBC (Auto) 142.0 H (0.0-6.0) /HPF
[2019-07-21 10:28] LABS: Hematocrit 35.2 % (30.3-42.9); Hemoglobin 11.5 gm/dl (10.1-14.3); Mean Corpuscular HGB Conc 33 % (30-34); Mean Corpuscular Volume 79 fl (79-97); Platelet Count 221 K/mm3 (140-440); Red Blood Count 4.44 M/mm3 (3.65-5.03)
[2019-07-21] MEDS: FERROUS SULFATE 325 MG TAB PO SCH ×2 (10:36→23:03)
[2019-07-21] MEDS: PRENATAL VIT27-FE FUMARATE-FOLIC ACID VIT TAB PO SCH (10:36)
[2019-07-21] MEDS: DOCUSATE SODIUM 100 MG CAP PO SCH ×2 (10:36→22:20)
[2019-07-21 11:21] LABS: Basophils % (Manual) 0 % (0.0-1.8); Total Cells Counted 100
[2019-07-21 11:23] LABS: Hypochromasia 1+; Platelet Estimate Consistent w Auto
--- NOTE | 2019-07-21 19:49 | Discharge Summary ---
Providers - Providers Date of Admission: 07/17/19 11:46 Date of discharge: 07/21/19 Attending physician: JOSE GE Primary care physician: JOSE GE Hospitalization Reason for admission: induction of labor, IUP at term, other (Oligohydramnios) Delivery: Episiotomy: none Laceration: none Other procedures: none complications: UTI Discharge diagnosis: IUP at term delivered [place] baby: female Hospital course: Pt is a 29yo HF EDC 07/25/19; EGA 39 0/7 weeks who presented in early labor. She received late care at [facility] since 24 weeks and course has been unremarkable except +GBS. She was begun on pitocin and subsequently delivered without complications. She developed a low grade temp which resolved with IV Ancef. After being afebrile x 24hrs she was therefore discharged to home in stable condition on PO Keflex, and will follow up in the office in 5 days. Condition at discharge: Good Disposition: DC-01 TO HOME OR SELFCARE - Discharge Diagnoses (1) 39 weeks gestation of Status: Resolved (2) Nwulm-ddy-icnqw fetus, third trimester Status: Resolved (3) Oligohydramnios in third trimester Status: Resolved Qualifiers: Fetus number: single or unspecified fetus Qualified Code(s): O41.03X0 - Oligohydramnios, third trimester, not applicable or unspecified (4) (normal spontaneous vaginal delivery) Status: Resolved (5) Acute blood loss anemia Status: Resolved Plan - Discharge Medications Prescriptions: Ferrous Sulfate [Feosol 325 MG tab] 325 mg PO BID #60 tablet cephALEXin [Keflex] 500 mg PO Q12HR #10 cap Ibuprofen [Motrin 600 MG tab] 600 mg PO Q6HR #30 tablet Vit-Fe Fumar-FA [ Vitamin] 1 each PO QDAY #30 tablet - Provider Discharge Summary Activity: routine, no sex for 6 weeks, no heavy lifting 4 weeks, no strenuous exercise Diet: routine Instructions: routine Additional instructions: [] Smoking cessation referral if applicable(refer to patient education folder for contact #) [] Refer to [facility]'s [facility] Booklet Call your doctor immediately for: * Fever > 100.5 * Heavy vaginal bleeding ( >1 pad per hour) * Severe persistent headache * Shortness of breath * Reddened, hot, painful area to leg or breast * Drainage or odor from incision. * Keep incision clean and dry at all times and follow doctor's instructions regarding bathing/showering - Follow up plan Follow up: JOSE GE MD [Primary Care Provider] - 7 Days AUGUSTINA JORDAN MD [Referring] - 7 Days
[2019-07-22] MEDS: IBUPROFEN 600 MG TAB PO SCH ×4 (00:10→23:57)
[2019-07-22] MEDS: ACETAMINOPHEN 325 MG TAB PO PRN (00:51)
[2019-07-22] MEDS: ceFAZolin/NS 1 GM/50 ML 1 GM/50 ML BAG IV SCH (06:44)
[2019-07-22] MEDS: PRENATAL VIT27-FE FUMARATE-FOLIC ACID VIT TAB PO SCH (10:26)
[2019-07-22] MEDS: DOCUSATE SODIUM 100 MG CAP PO SCH ×2 (10:26→21:50)
[2019-07-22] MEDS: FERROUS SULFATE 325 MG TAB PO SCH ×2 (10:26→21:50)
[2019-07-22] MEDS ORDERED: AMPICILLIN/NS 2 GM/100 ML 2 GM/100 ML BAG IV ONE (11:46)
--- NOTE | 2019-07-22 12:11 | Progress Note ---
Assessment and Plan - Patient Problems (1) 39 weeks gestation of Onset Date: 07/18/19 Current Visit: Yes Status: Resolved (2) Qvvyz-irb-zoikx fetus, third trimester Onset Date: 07/18/19 Current Visit: Yes Status: Resolved (3) Oligohydramnios in third trimester Onset Date: 07/18/19 Current Visit: Yes Status: Resolved Qualifiers: Fetus number: single or unspecified fetus Qualified Code(s): O41.03X0 - Oligohydramnios, third trimester, not applicable or unspecified (4) (normal spontaneous vaginal delivery) Onset Date: 07/19/19 Current Visit: Yes Status: Resolved Plan to address problem: A: S/P - PPD #4 Doing well Asymptomatic anemia - stable Low grade temp - continues despite IV Ancef. P: Will repeat CBC and obtain CXR. (5) Acute blood loss anemia Current Visit: Yes Status: Resolved Subjective - Subjective Date of service: 07/22/19 Principal diagnosis: s/p - PPD #4; Low grade temp Interval history: Pt is feeling well without complaints except a productive cough, but wants to go home. Patient reports: appetite normal, voiding normally, pain well controlled, flatus, ambulating normally, no dizzy ambulation, no nauseated [place]: doing well, nursing well Objective - Vital Signs Latest vital signs: Vital Signs Temp Pulse Resp BP BP Pulse Ox 07/22/19 08:50 97.8 F 73 18 120/71 07/22/19 04:51 98.2 F 79 20 112/69 97 07/22/19 03:03 98.6 F 07/22/19 00:08 100.1 F H 99 H 20 132/88 96 07/21/19 22:15 99.7 F H 91 H 18 131/84 97 07/21/19 21:26 99.6 F 124 H 18 132/89 96 07/21/19 16:04 98.8 F 90 18 128/82 97 Intake and Output 07/21/19 07/22/19 07/22/19 22:59 06:59 14:59 Intake Total 1130 290 240 Balance 1130 290 240 Intake: IV 50 50 ANCEF/NS 1 GM/50 ML 1 gm 50 50 In 50 ml @ 100 mls/hr IV Q8HR [facility] Rx#:[id number] Oral 600 240 240 Intake, Free Water 480 Other: Total, Intake Amount 600 240 240 # Voids Void 4 1 1 - Exam Breasts: Present: deferred Cardiovascular: Present: Regular rate Lungs: Present: Clear to auscultation Abdomen: Present: normal appearance, soft Uterus: Present: normal, firm, fundal height below umbilicus Extremities: Present: normal
--- NOTE | 2019-07-22 13:57 | XRay Report ---
CHEST 2 VIEWS INDICATION / CLINICAL INFORMATION: Productive cough and fever. COMPARISON: None available. FINDINGS: SUPPORT DEVICES: None. HEART / MEDIASTINUM: No significant abnormality. LUNGS / PLEURA: No significant pulmonary or pleural abnormality. No pneumothorax. ADDITIONAL FINDINGS: No significant additional findings. IMPRESSION: 1. No acute findings. Signer Name: Abelardo Carney MD Signed: 07/22/2019 1:53 PM Workstation Name: [id number]
[2019-07-22 14:18] LABS: Basophils # (Auto) 0.1 K/mm3 (0.0-0.1); Basophils % (Auto) 0.3 % (0.0-1.8); Eosinophils # (Auto) 0.9 K/mm3 (0.0-0.4); Hematocrit 37.1 % (30.3-42.9); Lymphocytes # (Auto) 2.1 K/mm3 (1.2-5.4); Lymphocytes % (Auto) 12.2 % (13.4-35.0); Mean Corpuscular HGB Conc 32 % (30-34); Mean Corpuscular Volume 79 fl (79-97); Monocytes # (Auto) 0.8 K/mm3 (0.0-0.8); Monocytes % (Auto) 4.5 % (0.0-7.3); Platelet Count 261 K/mm3 (140-440)
[2019-07-22] MEDS: GENTAMICIN/NS 100 MG/100 ML 100 MG/100 ML BAG IV SCH (17:11)
[2019-07-23] MEDS: GENTAMICIN/NS 100 MG/100 ML 100 MG/100 ML BAG IV SCH ×3 (00:31→16:46)
[2019-07-23] MEDS: IBUPROFEN 600 MG TAB PO SCH ×3 (00:40→22:14)
--- NOTE | 2019-07-23 08:50 | Progress Note ---
Assessment and Plan - Patient Problems (1) 39 weeks gestation of Onset Date: 07/18/19 Current Visit: Yes Status: Resolved (2) Gqdem-wjt-knoiu fetus, third trimester Onset Date: 07/18/19 Current Visit: Yes Status: Resolved (3) Oligohydramnios in third trimester Onset Date: 07/18/19 Current Visit: Yes Status: Resolved Qualifiers: Fetus number: single or unspecified fetus Qualified Code(s): O41.03X0 - Oligohydramnios, third trimester, not applicable or unspecified (4) (normal spontaneous vaginal delivery) Onset Date: 07/19/19 Current Visit: Yes Status: Resolved Plan to address problem: A: S/P - PPD #5 Doing well Asymptomatic anemia - stable Low grade temp - improving on IV Gentamycin. P: Will repeat CBC in AM. (5) Acute blood loss anemia Current Visit: Yes Status: Resolved Subjective - Subjective Date of service: 07/23/19 Principal diagnosis: s/p - PPD #5; Low grade temp Interval history: Pt is feeling well without complaints, wants to go home. CXR - Negative. Patient reports: appetite normal, voiding normally, pain well controlled, flatus, ambulating normally, no dizzy ambulation, no nauseated [place]: doing well, nursing well Objective - Vital Signs Latest vital signs: Vital Signs Temp Pulse Resp BP 07/23/19 00:00 98.1 F 93 H 18 134/80 07/22/19 22:50 18 07/22/19 21:50 18 07/22/19 16:20 98.4 F 84 18 125/92 Intake and Output 07/22/19 07/23/19 07/23/19 22:59 06:59 14:59 Intake Total 220 240 Balance 220 240 Intake: IV 100 GENTAMICIN/NS 100 MG/100 100 ML 100 mg In 100 ml @ 200 mls/hr IV Q8H [facility] Rx#: [id number] Oral 120 240 Other: Total, Intake Amount 120 240 # Voids Void 1 1 - Exam Breasts: Present: deferred Abdomen: Present: normal appearance, soft Uterus: Present: normal, firm, fundal height below umbilicus - Labs Labs: Abnormal lab results 07/22/19 Range/Units 13:38 WBC 17.1 H (4.5-11.0) K/mm3 MCH 26 L (28-32) pg RDW 16.0 H (13.2-15.2) % Lymph % (Auto) 12.2 L (13.4-35.0) % Eos % (Auto) 5.0 H (0.0-4.3) % Eos # 0.9 H (0.0-0.4) K/mm3 Seg Neutrophils % 78.0 H (40.0-70.0) % Seg Neutrophils # 13.3 H (1.8-7.7) K/mm3 Microbiology 07/22/19 Unknown Urine,Catheterized - Straight Catheter Urine Culture - Preliminary NO GROWTH AFTER 24 HOURS 07/22/19 21:09 Peripheral/Venous Blood Culture - Preliminary Culture in Progress 07/22/19 22:07 Peripheral/Venous Blood Culture - Preliminary Culture in Progress Laboratory Results - last 24 hr 07/22/19 07/23/19 13:38 08:52 WBC 17.1 H 15.5 H RBC 4.70 4.31 Hgb 12.0 11.2 Hct 37.1 34.4 MCV 79 80 MCH 26 L 26 L MCHC 32 33 RDW 16.0 H 15.7 H Plt Count 261 249 Lymph % (Auto) 12.2 L [place] % (Auto) 4.5 Eos % (Auto) 5.0 H Baso % (Auto) 0.3 Lymph # 2.1 [place] # 0.8 Eos # 0.9 H Baso # 0.1 Seg Neutrophils % 78.0 H Seg Neutrophils # 13.3 H
[2019-07-23 09:54] LABS: Hematocrit 34.4 % (30.3-42.9); Hemoglobin 11.2 gm/dl (10.1-14.3); Mean Corpuscular HGB Conc 33 % (30-34); Mean Corpuscular Volume 80 fl (79-97); Platelet Count 249 K/mm3 (140-440); Red Blood Count 4.31 M/mm3 (3.65-5.03); Red Cell Distribution Width 15.7 % (13.2-15.2)
[2019-07-23] MEDS: DOCUSATE SODIUM 100 MG CAP PO SCH ×2 (09:56→22:14)
[2019-07-23] MEDS: FERROUS SULFATE 325 MG TAB PO SCH ×2 (09:56→22:14)
[2019-07-23] MEDS: PRENATAL VIT27-FE FUMARATE-FOLIC ACID VIT TAB PO SCH (09:56)
[2019-07-23] MEDS ORDERED: SODIUM CHLORIDE 0.9% 1000 ML 1,000 ML IV SCH (11:00)
[2019-07-24] MEDS: GENTAMICIN/NS 100 MG/100 ML 100 MG/100 ML BAG IV SCH ×2 (00:55→08:58)
[2019-07-24] MEDS: IBUPROFEN 600 MG TAB PO SCH ×2 (06:03→12:00)
[2019-07-24] MEDS: FERROUS SULFATE 325 MG TAB PO SCH (08:59)
[2019-07-24] MEDS: DOCUSATE SODIUM 100 MG CAP PO SCH (08:59)
[2019-07-24] MEDS: PRENATAL VIT27-FE FUMARATE-FOLIC ACID VIT TAB PO SCH (08:59)
[2019-07-24 11:14] LABS: Hematocrit 33.5 % (30.3-42.9); Hemoglobin 10.9 gm/dl (10.1-14.3); Mean Corpuscular HGB Conc 33 % (30-34); Mean Corpuscular Volume 79 fl (79-97); Platelet Count 266 K/mm3 (140-440); Red Blood Count 4.24 M/mm3 (3.65-5.03); Red Cell Distribution Width 15.7 % (13.2-15.2)
[2019-07-24 17:24] VITALS: BP 136/78
== END 2019-07-24 17:00 | disposition home or self-care (01) | DRG 806 ==
LOC: TRG 09:21 → LD 11:46 → OB 07-18 18:50
PROVIDERS: ADMIT Obstetrics & Gynecology; ATTEND Obstetrics & Gynecology
PROC: 3E0P7VZ Introduction of Hormone into Female Reproductive, Via Natural or Artificial Opening (ICD-10-PCS; 2019-07-17)
PROC: 10E0XZZ Delivery of Products of Conception, External Approach (ICD-10-PCS; principal; 2019-07-18)
PROC: 0KQM0ZZ Repair Perineum Muscle, Open Approach (ICD-10-PCS; 2019-07-18)
PROC: 3E0R3BZ Introduction of Anesthetic Agent into Spinal Canal, Percutaneous Approach (ICD-10-PCS; 2019-07-18)
PROC: 00HU33Z Insertion of Infusion Device into Spinal Canal, Percutaneous Approach (ICD-10-PCS; 2019-07-18)
PROC: 3E0234Z Introduction of Serum, Toxoid and Vaccine into Muscle, Percutaneous Approach (ICD-10-PCS; 2019-07-19)
DX: O42.92 Full-term premature rupture of membranes, unspecified as to length of time between rupture and onset of labor (principal); O41.03X0 Oligohydramnios, third trimester, not applicable or unspecified; Z37.0 Single live birth; Z3A.38 38 weeks gestation of pregnancy; O76 Abnormality in fetal heart rate and rhythm complicating labor and delivery; O99.214 Obesity complicating childbirth; O99.824 Streptococcus B carrier state complicating childbirth; O70.1 Second degree perineal laceration during delivery; Z23 Encounter for immunization
CPT/HCPCS: 36415; 71046; 76815; 76816; 76819; 80053; 80307; 81001; 83036; 83615; 84550; 85007; 85014; 85018; 85025; 85027; 86592; 86689; 86706; 86762; 86803; 86850; 86900; 86901; 87040; 87086; 88307; 90471; G0378; J0290; J0690; J0702; J1580; J2590; J3105; J7030; J7050; J7120; J7121